=== PATIENT | female | born 1955 | race Asian ===

== ENCOUNTER 2017-02-23 18:29 | Emergency (ER) | payer OTHER ==
[2017-02-23] MEDS ORDERED: NS 1,000 ML IV ONE (18:51)
[2017-02-23] MEDS ORDERED: ONDANSETRON 4 MG/2 ML VIAL IVP ONE ×2 (18:51→20:08)
--- NOTE | 2017-02-23 18:51 | EDPHY ---
H & P Stated Complaint: n/v/d since yesterday - Personal History Current Tetanus/Diphtheria Vaccine: Yes - Medical/Surgical History Hx Asthma: No Hx Chronic Respiratory Disease: No Hx Diabetes: Yes Hx Cardiac Disease: No Hx Renal Disease: No Hx Cirrhosis: No Hx Alcoholism: No Hx HIV/AIDS: No Hx Splenectomy or Spleen Trauma: No Other PMH: dm, hypothyroid, - Social History Smoking Status: Never smoked Time Seen by Provider: 02/23/17 18:36 HPI/ROS: CHIEF COMPLAINT: Nausea vomiting diarrhea HISTORY OF PRESENT ILLNESS: 62-year-old female history of hypothyroidism, diabetes, arrives via private vehicle complaining of nausea, vomiting, diarrhea since yesterday morning. approximately 10 episodes of watery diarrhea. No complaints of pain. Denies: Chest pain, abdominal pain, back pain, flank pain , headache, syncope, near syncope, urinary abnormality, decreased urine output. Denies international travel. Denies antibiotic use recently. Denies known sick contacts. Denies untreated water sources. PRIMARY CARE PROVIDER:Dr. Rosalee Gong REVIEW OF SYSTEMS: A ten point review of systems was performed and is negative with the exception of the items mentioned in the HPI PAST MEDICAL & SURGICAL HISTORY: Diabetes. Hypothyroid. No history of abdominal surgeries or chronic abdominal pathology SOCIAL HISTORY: Nonsmoker PHYSICAL EXAM (Prior to examination, patient consented to physical exam, hands were washed and my usual and customary physical exam procedures followed) 1) GENERAL: Well-developed, well-nourished, alert and oriented. Appears nontoxic answering questions appropriately 2) HEAD: Normocephalic, atraumatic 3) HEENT: Sclera anicteric. Nasopharynx, oropharynx, clear, no lesions.Dry mucous membranes 4) NECK: Full range of motion, no meningeal signs. 5) LUNGS: Clear auscultation bilaterally, no wheezes, no rhonchi, no retractions. 6) HEART: Regular rate and rhythm, no murmur, no heave, no gallop. 7) ABDOMEN: No guarding, no rebound, no focal tenderness, negative McBurney's, negative Rivero's, negative Rovsing's, negative peritoneal sign, I am unable to elicit any abdominal pain on exam 8) MUSCULOSKELETAL: Moving all extremities, no focal areas of tenderness, no obvious trauma. No peripheral edema or discoloration. 9) BACK: No CVA tenderness, no midline vertebral tenderness, no fluctuance, no step-off, no obvious trauma, no visual or palpable abnormality. 10) SKIN: No rash, no petechiae. 11) Psychiatric: Patient is oriented X 3, there is no agitation. DIFFERENTIAL DIAGNOSIS: in no particular include but limited to gastroenteritis , diverticulitis, cholecystitis (Stephanie,Anastacio Lena) Constitutional: Initial Vital Signs Temperature (C) 36.4 C 02/23/17 18:32 Heart Rate 84 02/23/17 18:32 Respiratory Rate 16 02/23/17 18:32 Blood Pressure 145/103 H 02/23/17 18:32 O2 Sat (%) 98 02/23/17 18:32 O2 Delivery Mode Room Air Allergies/Adverse Reactions: codeine Allergy (Verified 02/23/17 18:30) garlic Allergy (Verified 02/23/17 18:30) Penicillins Allergy (Verified 02/23/17 18:30) streptomycin Allergy (Verified 02/23/17 18:31) Home Medications: Medication Instructions Recorded Hydrochlorothiazide 08/04/14 Metformin HCl 08/04/14 Synthroid 08/04/14 Ondansetron Odt [Zofran Odt] 4 mg PO Q4PRN PRN #10 tab 02/23/17 Medical Decision Making ED Course/Re-evaluation: The patient was evaluated and managed by the physician's chiropractor assistant. My cosignature indicates that I reviewed the chart and I agree with the findings and plan of care as documented. I am the secondary supervising physician. ( Milana Fagan) 6:50 p.m.: Plan will be IV hydration, antiemetic, check laboratory studies and stool sample if she is able to provide . 7:30 p.m.: Re-evaluation, she is feeling improvement in symptoms, re-examined her abdomen which is soft no guarding or rebound negative McBurney's, negative Rivero's, no epigastric discomfort. She would like to attempt oral fluid challenge. 8:00 p.m.: Re-evaluation, is tolerating oral fluid. Re-examined her abdomen which remains soft no guarding no rebound. I think that acute surgical abdominal pathology, acute appendicitis, acute pancreatitis, acute cholecystitis , acute diverticulitis, bowel obstruction, less than likely in this patient at this time. Nonetheless she has been informed that early acute abdominal pathology such as those after mentioned are not fully ruled out and importance of 24 follow-up has been stressed. She has been unable to provide stool sample in the emergency department, She verbalizes understanding of this. At this time I do not think that imaging is currently indicated. Have offered admission however she would like to be discharged. She will be discharged with oral Zofran and my usual and customary abdominal precautions and instructions.Care and management in consultation with secondary supervising physician Dr Fagan . (Anastacio Brown) - Data Points Laboratory Results: Laboratory Results 02/23/17 18:40 02/23/17 18:40 02/23/17 02/23/17 02/23/17 18:40 18:40 18:40 WBC 12.98 10^3/uL H 10^3/uL (3.80-9.50) RBC 4.91 10^6/uL 10^6/uL (4.18-5.33) Hgb 13.5 g/dL g/dL (12.6-16.3) Hct 41.1 % % (38.0-47.0) MCV 83.7 fL fL (81.5-99.8) MCH 27.5 pg L pg (27.9-34.1) MCHC 32.8 g/dL g/dL (32.4-36.7) RDW 12.9 % % (11.5-15.2) Plt Count 270 10^3/uL 10^3/uL (150-400) MPV 9.0 fL fL (8.7-11.7) Neut % (Auto) 72.4 % % (39.3-74.2) Lymph % (Auto) 19.1 % % (15.0-45.0) [place] % (Auto) 5.3 % % (4.5-13.0) Eos % (Auto) 2.5 % % (0.6-7.6) Baso % (Auto) 0.2 % L % (0.3-1.7) Nucleat RBC Rel Count 0.0 % % (0.0-0.2) Absolute Neuts (auto) 9.39 10^3/uL H 10^3/uL (1.70-6.50) Absolute Lymphs (auto) 2.48 10^3/uL 10^3/uL (1.00-3.00) Absolute Monos (auto) 0.69 10^3/uL 10^3/uL (0.30-0.80) Absolute Eos (auto) 0.33 10^3/uL 10^3/uL (0.03-0.40) Absolute Basos (auto) 0.03 10^3/uL 10^3/uL (0.02-0.10) Absolute Nucleated RBC 0.00 10^3/uL 10^3/uL (0-0.01) Immature Gran % 0.5 % % (0.0-1.1) Immature Gran # 0.06 10^3/uL 10^3/uL (0.00-0.10) Sodium 140 mEq/L mEq/L (134-144) Potassium 4.2 mEq/L mEq/L (3.5-5.2) Chloride 104 mEq/L mEq/L (97-110) Carbon Dioxide 19 mEq/l L mEq/l (22-31) Anion Gap 17 mEq/L H mEq/L (8-16) BUN 16 mg/dL mg/dL (7-23) Creatinine 0.7 mg/dL mg/dL (0.6-1.0) Estimated GFR > 60 Glucose 138 mg/dL H mg/dL (70-100) Calcium 9.8 mg/dL mg/dL (8.5-10.4) Total Bilirubin 1.1 mg/dL mg/dL (0.1-1.4) Conjugated Bilirubin 0.2 mg/dL mg/dL (0.0-0.5) Unconjugated Bilirubin 0.9 mg/dL mg/dL (0.0-1.1) AST 35 IU/L IU/L (14-46) ALT 56 IU/L H IU/L (9-52) Alkaline Phosphatase 62 IU/L IU/L (38-126) Total Protein 7.8 g/dL g/dL (6.3-8.2) Albumin 4.8 g/dL g/dL (3.5-5.0) Lipase 442.0 IU/L H IU/L (23-300) TSH 6.240 uIU/mL H uIU/mL (0.465-4.680) Medications Given: Discontinued Medications Sodium Chloride (Ns) 1,000 mls @ 0 mls/hr IV ONCE ONE PRN Reason: Wide Open Stop: 02/23/17 18:52 Last Admin: 02/23/17 18:56 Dose: 1,000 mls Ondansetron HCl (Zofran) 4 mg IVP EDNOW ONE Stop: 02/23/17 18:52 Last Admin: 02/23/17 18:57 Dose: 4 mg Ondansetron HCl (Zofran Odt 4 Mg Prepack#2) 1 btl TAKEHOME EDNOW ONE Stop: 02/23/17 20:00 Last Admin: 02/23/17 20:09 Dose: 1 btl Ondansetron HCl (Zofran) 4 mg IVP EDNOW ONE Stop: 02/23/17 20:09 Last Admin: 02/23/17 20:09 Dose: 4 mg Departure - Departure Disposition: Home, Routine, Self-Care Clinical Impression: Nausea & vomiting Qualifiers: Vomiting type: unspecified Vomiting Intractability: non-intractable Qualified Code(s): R11.2 - Nausea with vomiting, unspecified Condition: Good Instructions: Ondansetron (By mouth), Acute Nausea and Vomiting (ED) Additional Instructions: Seek immediate medical attention if you develop new or worsening symptoms, if you develop fevers, chills, inability to tolerate oral intake or any other symptoms that concerns you. Referrals: Rosalee Gong MD [Primary Care Provider] - 1 day without fail Prescriptions: Ondansetron Odt [Zofran Odt] 4 mg PO Q4PRN PRN #10 tab PRN Reason: Nausea
[2017-02-23 18:57] LABS: % IMMATURE GRANULYOCYTES 0.5 % (0.0-1.1); ABSOLUTE IMMATURE GRANULOCYTES 0.06 10^3/uL (0.00-0.10); ADD DIFF? NO; ADD MORPH? NO; ADD SCAN? NO; ATYPICAL LYMPHOCYTE FLAG 10 (0-99); FRAGMENT RBC FLAG 0 (0-99); HEMATOCRIT 41.1 % (38.0-47.0); HEMOGLOBIN 13.5 g/dL (12.6-16.3); LEFT SHIFT FLG 0 (0-99); LIPEMIA HEMOLYSIS FLAG 80 (0-99); MEAN CELL HEMOGLOBIN 27.5 pg (27.9-34.1); MEAN CELL HEMOGLOBIN CONCENTR. 32.8 g/dL (32.4-36.7); MEAN CELL VOLUME 83.7 fL (81.5-99.8); PLATELET CLUMPS FLAG 40 (0-99); PLATELET COUNT 270 10^3/uL (150-400); RED BLOOD CELL COUNT 4.91 10^6/uL (4.18-5.33); RED CELL DISTRIBUTION WIDTH 12.9 % (11.5-15.2)
[2017-02-23 19:11] LABS: ALANINE AMINOTRANSFERASE 56 IU/L (9-52); ALBUMIN 4.8 g/dL (3.5-5.0); ALKALINE PHOSPHATASE 62 IU/L (38-126); ANION GAP 17 mEq/L (8-16); ASPARTATE AMINOTRANSFERASE 35 IU/L (14-46); BILIRUBIN,TOTAL 1.1 mg/dL (0.1-1.4); BILIRUBIN-CONJUGATED 0.2 mg/dL (0.0-0.5); BILIRUBIN-UNCONJUGATED 0.9 mg/dL (0.0-1.1); CALCIUM 9.8 mg/dL (8.5-10.4); CARBON DIOXIDE 19 mEq/l (22-31); CHLORIDE 104 mEq/L (97-110); CREATININE 0.7 mg/dL (0.6-1.0); GLOMERULAR FILTRATION RATE > 60; GLUCOSE 138 mg/dL (70-100); POTASSIUM 4.2 mEq/L (3.5-5.2); SODIUM 140 mEq/L (134-144); TOTAL PROTEIN 7.8 g/dL (6.3-8.2)
[2017-02-23 19:43] VITALS: O2SAT 94
[2017-02-23] MEDS ORDERED: ONDANSETRON 4MG PREPACK#2 BTL TAKEHOME ONE (19:59)
[2017-02-23] MEDS ORDERED: ONDANSETRON 4 MG/2 ML VIAL ONE (20:06)
[2017-02-23 21:31] VITALS: BP 134/86; PULSE 82; RESP 18; TEMP 98.2
== END 2017-02-23 21:31 | disposition home or self-care (01) ==
DX: R11.2 Nausea with vomiting, unspecified (principal); E11.9 Type 2 diabetes mellitus without complications; Z79.84 Long term (current) use of oral hypoglycemic drugs
CPT/HCPCS: 96374; J2405